=== PATIENT | male | born 1985 | race Caucasian/White ===

== ENCOUNTER 2021-12-15 03:52 | Emergency (ER) | payer OTHER ==
[~2021-12-15] VITALS: Ht 175.3 cm; Wt 74.8 kg
[~2021-12-15 03:52] MED LIST: AMIT25 PO; HYDACE5 PO; PRED10 PO; PROM25 PO; RXHYOS.125 PO; SILSUL1TC TOP
[2021-12-15] MEDS ORDERED: CEPH500 PO (05:29)
[2021-12-15] MEDS ORDERED: HYDR1TAB94 PO (05:29)
== END 2021-12-15 05:41 | disposition home or self-care (01) ==
LOC: ER 03:52
DX: S61.213A Laceration without foreign body of left middle finger without damage to nail, initial encounter (principal); Z23 Encounter for immunization; Z87.891 Personal history of nicotine dependence; W26.0XXA Contact with knife, initial encounter
CPT/HCPCS: 12004; 90471; 90714; 96374; 96375; 96376; 99282-25; J0690; J2405; J3010

== ENCOUNTER 2023-03-07 16:42 | Emergency (ER) | payer OTHER ==
[~2023-03-07] VITALS: Ht 172.7 cm; Wt 70.3 kg
[~2023-03-07 16:42] MED LIST changes: +CEPH500 PO; +HYDR1TAB94 PO
[2023-03-07 16:45] VITALS: BP 157/107
== END 2023-03-07 18:42 | disposition home or self-care (01) ==
LOC: ER 16:42
DX: R07.81 Pleurodynia (principal); S63.502A Unspecified sprain of left wrist, initial encounter; X50.3XXA Overexertion from repetitive movements, initial encounter; Y93.71 Activity, boxing; Z87.891 Personal history of nicotine dependence
CPT/HCPCS: 71101; 73130; J1885